=== PATIENT | female | born 1985 | race Caucasian/White ===

== ENCOUNTER → 2017-02-15 | Outpatient (CLI) | payer BC ==
[~2017-02-15] MED LIST: FRRS300 PO; MTR600X PO; PRENTAB26 PO
[2017-02-15 11:34] LABS: URINE APPEARANCE CLEAR (CLEAR); URINE BILIRUBIN NEG (NEG); URINE COLOR YELLOW; URINE NITRITE NEG (NEG); URINE PH 7.5 (4.5-7.5); URINE SPECIFIC GRAVITY 1.014 (1.000-1.030); UROBILINOGEN NEG (NEG)
[2017-02-15 11:48] LABS: MANUAL MICROSCOPIC REQUIRED? NO; REVIEW REQ? NO
== END | disposition home or self-care (01) ==
LOC: C.LABSPEC 11:03
PROVIDERS: ATTEND Obstetrics & Gynecology
DX: Z34.81 Encounter for supervision of other normal pregnancy, first trimester (principal)

== ENCOUNTER → 2017-02-19 | Outpatient (CLI) | payer BC | END | disposition home or self-care (01) | LOC: C.PAPS 07:54 | PROVIDERS: ATTEND Obstetrics & Gynecology | DX: Z01.419 Encounter for gynecological examination (general) (routine) without abnormal findings (principal); Z11.51 Encounter for screening for human papillomavirus (HPV) ==

== ENCOUNTER → 2017-02-19 | Outpatient (CLI) | payer BC ==
[2017-02-19 16:33] LABS: BASO % 0.3 %; BASO ABS # 0.03 K/uL (0-0.2); COMPLETE YES; HEMATOCRIT 39.3 % (37-47); IG% 0.2 %; LYMPH % 25.6 %; LYMPH ABS # 2.48 K/uL (1.2-3.4); MEAN CELL VOLUME 83.4 fL (80-100); MEAN CORPUSCULAR HEMOGLOBIN 28.2 pg (25-34); MEAN CORPUSCULAR HGB CONC 33.8 g/dl (32-36); MEAN PLATELET VOLUME 9.5 fL (7.4-10.4); MONO % 7.1 %; NEUT % 63.8 %; PLATELET COUNT 283 K/uL (130-400); RED BLOOD COUNT 4.71 M/uL (4.2-5.4); WHITE BLOOD COUNT 9.69 K/uL (4.8-10.8)
[2017-02-22 11:51] LABS: CHLAMYDIA TRACH RNA*** NOT DETECTED (NOT DETECTED); GC (NEIS GONORRHOEAE)RNA** NOT DETECTED (NOT DETECTED)
== END | disposition home or self-care (01) ==
LOC: C.LAB1850 15:35
PROVIDERS: ATTEND Obstetrics & Gynecology
DX: Z34.83 Encounter for supervision of other normal pregnancy, third trimester (principal)

== ENCOUNTER → 2017-04-13 | Outpatient (CLI) | payer BC ==
[2017-04-13 18:48] LABS: GTGD 50 Grams
[2017-04-15 16:37] LABS: AFP CONCENTRATION 25.3 NG/ML; AFP MULTIPLE OF MEDIAN 1.08; AFPTS GESTATIONAL AGE 15.3 WEEKS; AFPTS INSULIN DEP DIABETIC? NO; AFPTS MATERNAL WT 214 LBS; ALPHA-FETOPROTEIN RACE CAUCASIAN=W; EDD DETERMINED BY ULTRASOUND; ESTRIOL MULTIPLE OF MEDIAN 1.48; HISTORY OF NTD NO; INHIBIN A 182 PG/ML; REPEAT SAMPLE? NO
== END | disposition home or self-care (01) ==
LOC: C.LAB1850 16:25
PROVIDERS: ATTEND Obstetrics & Gynecology
DX: Z34.82 Encounter for supervision of other normal pregnancy, second trimester (principal); Z3A.00 Weeks of gestation of pregnancy not specified

== ENCOUNTER → 2017-07-15 | Outpatient (CLI) | payer OTHER ==
[2017-07-15 17:43] LABS: HEMOGLOBIN 12.6 g/dL (12.0-16.0)
== END | disposition home or self-care (01) ==
LOC: C.LAB1850 16:57
PROVIDERS: ATTEND Obstetrics & Gynecology
DX: Z34.82 Encounter for supervision of other normal pregnancy, second trimester (principal)

== ENCOUNTER → 2017-09-10 | Outpatient (CLI) | payer OTHER | END | disposition home or self-care (01) | LOC: C.LABSPEC 10:29 | PROVIDERS: ATTEND Obstetrics & Gynecology | DX: Z34.83 Encounter for supervision of other normal pregnancy, third trimester (principal) ==

== ENCOUNTER 2017-10-11 19:27 | Outpatient (CLI) | payer OTHER ==
[~2017-10-11] VITALS: Ht 157.5 cm; Wt 114.0 kg
[2017-10-11 20:20] VITALS: Ht 157.5 cm; Wt 114.0 kg
== END 2017-10-11 21:30 | disposition home or self-care (01) ==
LOC: C.LD 19:27 → C.OPB 19:27
PROVIDERS: ATTEND Obstetrics & Gynecology
DX: O34.43 Maternal care for other abnormalities of cervix, third trimester (principal); O48.0 Post-term pregnancy; Z3A.41 41 weeks gestation of pregnancy

== ENCOUNTER 2017-10-12 07:44 | Inpatient (IN) | payer OTHER ==
[~2017-10-12] VITALS: Ht 157.5 cm; Wt 115.5 kg
[~2017-10-12 07:44] MED LIST changes: -FRRS300 PO; -MTR600X PO
[2017-10-12 08:14] VITALS: Ht 157.5 cm; Wt 115.5 kg
[2017-10-12] MEDS ORDERED: LACTATED RINGER'S 1000ML 500 ML IV PRN ×2 (08:14→14:54)
[2017-10-12] MEDS ORDERED: OXYTOCIN 30 UNITS/500ML NSS IV PRN ×2 (08:15→19:00)
[2017-10-12 08:28] LABS: HEMOGLOBIN 12.6 g/dL (12.0-16.0); MEAN CELL VOLUME 86.9 fL (80-100); MEAN CORPUSCULAR HEMOGLOBIN 29.6 pg (25-34); MEAN CORPUSCULAR HGB CONC 34.1 g/dl (32-36); PLATELET COUNT 181 K/uL (130-400); RED CELL DISTRIBUTION WIDTH CV 14.3 % (11.5-14.5); RED CELL DISTRIBUTION WIDTH SD 44.7 fL (36.4-46.3); WHITE BLOOD COUNT 9.51 K/uL (4.8-10.8)
[2017-10-12] MEDS: LACTATED RINGER'S 1000ML 1,000 ML IV SCH ×2 (08:36→14:33)
[2017-10-12] MEDS: LACTATED RINGER'S 1000ML 1,000 ML IV PRN ×2 (14:13→14:27)
[2017-10-12] MEDS ORDERED: EpHEDrine SULFATE INJ 50 MG/ML AMP ONE (14:19)
[2017-10-12] MEDS ORDERED: FENTANYL CITRATE INJ 50 MCG/1 ML 2 ML VIAL ONE (14:19)
[2017-10-12] MEDS ORDERED: BUPIVACAINE 0.25% 30 ML VIAL ONE (14:19)
[2017-10-12] MEDS ORDERED: FENTANYL 2MCG/ML ROPIV 1.25MG/ML 100ML BAG EPI ONE (14:20)
[2017-10-12] MEDS ORDERED: NALOXONE HCL INJ 1 MG in SODIUM CHLORIDE 0.9% 1000ML 1,000 ML IV PRN ×4 (14:54)
[2017-10-12] MEDS ORDERED: NALOXONE HCL INJ 0.4 MG/1 ML VIAL/CARP IV PRN (15:00)
[2017-10-12] MEDS ORDERED: PROMETHAZINE HCL INJ 25 MG in SODIUM CHLORIDE 0.9% 50ML 50 ML IV PRN (15:00)
[2017-10-12] MEDS ORDERED: ONDANSETRON INJ 2 MG/ML 2 ML VIAL IV PRN (15:00)
[2017-10-12] MEDS ORDERED: DiphenhydrAMINE HCL 50 MG/ML VIAL IV PRN (15:00)
[2017-10-12] MEDS ORDERED: METOCLOPRAMIDE HCL INJ 20 MG in SODIUM CHLORIDE 0.9% 50ML 50 ML IV PRN (15:00)
[2017-10-12] MEDS ORDERED: NALBUPHINE HCL INJ 10 MG/ML AMP IV PRN (15:00)
[2017-10-12] MEDS ORDERED: EpHEDrine SULFATE INJ 50 MG/ML AMP IV PRN (15:00)
[2017-10-12] MEDS ORDERED: FENTANYL 2MCG/ML ROPIV 1.25MG/ML 100ML BAG EPI PRN (15:00)
[2017-10-12] MEDS ORDERED: SUPERCREAM 0.870 % 15GM JAR EXT PRN (19:00)
[2017-10-12] MEDS ORDERED: OXYCODONE/ACETAMINOPHEN 5-325 TAB PO PRN (19:00)
[2017-10-12] MEDS ORDERED: LANOLIN OINT EXT PRN (19:00)
[2017-10-12] MEDS ORDERED: BENZOCAINE 20% AER SPR 82.5 GM CAN EXT PRN (19:00)
[2017-10-12] MEDS ORDERED: HYDROCORTISONE ACETATE 25 MG SUPP PR PRN (19:00)
--- NOTE | 2017-10-12 19:38 | Vaginal Delivery Summary ---
Vaginal Delivery Summary VAGINAL DELIVERY SUMMARY Pre-Delivery Diagnoses: 1. 32-year-old @ 41 10/16 2. Postdates Postdelivery diagnoses: 1. Same as above 2. Shoulder dystocia Procedure: Spontaneous vaginal delivery Findings: Viable female with Apgars 7 at 1 minute and 9 at 5 minutes, normal-appearing placenta with three-vessel cord. Weight is pending - please see nursery records. Estimated blood loss: 300 cc Complications: Shoulder dystocia, please see delivery summary for details. Delivery summary: The patient presented last night for cervical ripening in preparation for today's induction of labor for postdates . She had Husain balloon inserted, which then fell out prior to her leaving labor and delivery. She was discharged home and returned this morning, where induction was started with Pitocin. Once her contraction pattern became regular, she received an epidural, and then artificial rupture of membranes was performed for clear fluid. She progressed to 9+ cervical dilation, with a small anterior lip of cervix remaining. She was feeling pressure with contractions. With 1 push, this remaining cervix was pushed behind the head. She then continued to push, and the head was at 1827. She continued to push and the head delivered at 1828 in the right occiput anterior position. Nuchal cord 2 was noted, and this was reduced without difficulty. The patient then continued to push, "turtle sign" of the face was noted, and the patient was placed in Kristopher position. The posterior arm was delivered, suprapubic pressure was applied with the following push, and the anterior shoulder then delivered. The baby was placed on mother's abdomen, a spontaneous cry was heard, the cord was doubly clamped and cut, and the baby was then handed off to the waiting nursery team. A cord segment was retained for cord gases, cord blood was obtained, and the placenta was delivered spontaneously intact with three-vessel cord. The uterus and vagina were swabbed of all clots and debris. Pitocin was started, the bladder was drained with a red-rubber catheter for 50cc clear urine, the uterus became firm, and the cervix, vagina, and perineum were inspected, a superficial perineal laceration was noted. This laceration was hemostatic and did not require repair. At the conclusion of the delivery, mother and baby are recovering in stable and good condition in the room. Sponge and instrument counts are correct 2. After delivery, I discussed the events surrounding the shoulder dystocia with patient. The baby does have some bruising on her face. Bilateral upper extremities are warm and moving and there are positive pulses, no evidence of clavicular crepitus, no clenched fist, however the left arm is not moving as much as the right. I have called the on-call account retention representative, Dr. Sesay, to notify her of the shoulder dystocia and above findings at time of delivery, and she will follow-up with nursery staff.
--- NOTE | 2017-10-12 19:48 | Anesthesia Procedure Note ---
Anesthesia Epidural Removal Nt Date & Time Oct 12, 2017 at 19:48 Vital Signs Pain Intensity: 0.0 Notes Mental Status: alert / awake / arousable, participated in evaluation Nausea / Vomiting: adequately controlled Pain: adequately controlled Airway Patency, RR, SpO2: stable & adequate BP & HR: stable & adequate Hydration State: stable & adequate Neuraxial Anesthesia: was administered Anesthetic Complications: no major complications apparent, pt satisfied with anesthetic care Epidural: removed without complications, with tip intact
[2017-10-12] MEDS: DOCUSATE SODIUM 100 MG CAP PO SCH (20:00)
[2017-10-12 21:40] VITALS: BP 115/67; PULSE 115; TEMP 37.3; O2SAT 96
[2017-10-12] MEDS: IBUPROFEN 600 MG TAB PO PRN (23:21)
[2017-10-12 23:30] VITALS: BP 122/76; PULSE 78; TEMP 36.6; O2SAT 97
[2017-10-13 03:10] VITALS: BP 107/66; PULSE 77; TEMP 36.6
[2017-10-13] MEDS: IBUPROFEN 600 MG TAB PO PRN ×4 (03:18→20:29)
--- NOTE | 2017-10-13 07:05 | Progress Note ---
Subjective Oct 13, 2017. Subjective conversation w/ patient, physical exam, chart review, lab review Ambulation: ambulating normally Voiding: no voiding problems Passing Gas: Yes Diet Tolerance: Regular Diet Lochia: Moderate Feeding Type: Breast Feeding Pain: controlled Review of Systems Constitutional: No fever, No chills Respiratory: No cough, No shortness of breath Cardiac: No chest pain Abdomen: No pain, No nausea, No vomiting Female : No dysuria Objective Vital Signs Date Time Temp Pulse Resp B/P (MAP) Pulse Ox O2 Delivery O2 Flow Rate FiO2 10/13/17 03:10 36.6 77 16 107/66 (80) Room Air 10/12/17 23:30 97 Room Air 10/12/17 23:30 36.6 78 18 122/76 (91) 97 Room Air 10/12/17 21:40 96 Room Air 10/12/17 21:40 37.3 115 20 115/67 (83) 96 Room Air Physical Exam General Appearance: WELL-APPEARING, WD/WN, NO APPARENT DISTRESS Respiratory/Chest: lungs clear, no respiratory distress Cardiovascular: regular rate, rhythm, no murmur Abdomen: normal bowel sounds, non tender, soft Fundus: Firm Extremities: non-tender, normal inspection, no pedal edema Laboratory Results Last 24 Hours Test 10/12/17 08:18 10/13/17 06:59 White Blood Count 9.51 K/uL Red Blood Count 4.26 M/uL Hemoglobin 12.6 g/dL Hematocrit 37.0 % Mean Corpuscular Volume 86.9 fL Mean Corpuscular Hemoglobin 29.6 pg Mean Corpuscular Hemoglobin Concent 34.1 g/dl RDW Standard Deviation 44.7 fL RDW Coefficient of Variation 14.3 % Platelet Count 181 K/uL Mean Platelet Volume 10.0 fL Medications Current Inpatient Medications Medications (Trade) Dose Ordered Sig/Irene Route Start Time Stop Time Status Last Admin Dose Admin Lactated Ringer's 1,000 ml @ 125 mls/hr Q8H IV 10/12/17 08:14 10/14/17 08:13 10/12/17 08:36 125 MLS/HR Oxytocin (Pitocin IV) 30 units UD PRN IV 10/12/17 19:00 11/11/17 18:59 Benzocaine (Dermoplast Aero Spr) 1 appln PRN PRN EXT 10/12/17 19:00 11/11/17 18:59 10/13/17 03:19 1 APPLN Cocaine HCl (Supercream 0.870% Cr) BID PRN EXT 10/12/17 19:00 10/26/17 18:59 Hydrocortisone Acetate (Anusol Hc Supp) 25 mg BID PRN [place] 10/12/17 19:00 11/11/17 18:59 Lanolin (Lanolin Oint) PRN PRN EXT 10/12/17 19:00 11/11/17 18:59 Ibuprofen (Motrin Tab) 600 mg Q4H PRN PO 10/12/17 19:00 11/11/17 18:59 10/13/17 03:18 600 MG Oxycodone/ Acetaminophen (Percocet 5-325mg Tab) 1 tab Q4H PRN PO 10/12/17 19:00 10/26/17 18:59 Bisacodyl (Dulcolax Tab) 5 mg 20 PO 10/13/17 20:00 10/13/17 20:01 Docusate Sodium (coLACE CAP) 100 mg BID PO 10/12/17 20:00 11/11/17 19:59 Assessment and Plan Post- Day#: 1 Continue Routine Care: 32 yo f, delivered vaginally at 41 wk with complication of shoulder dystocia. Patient is A+/GBS-/RI. Pt vitals reviewed, WNL. Hgb pending, no signs or sx of anemia (EBL 300 cc) Patient is doing well clinically Plan; 1. Continue pp care; ambulate, monitor lochia, support BF, control pain Resident Physician Supervision Note: I interviewed and examined the patient. Discussed with Dr. Chawla and agree with findings and plan as documented in the note. Any exceptions or clarifications are listed here: PPD#1 doing well. Anticipate discharge home tomorrow. Documented By: Latisha Nunes
[2017-10-13 07:16] LABS: HEMATOCRIT 33.5 % (37-47); HEMOGLOBIN 11.3 g/dL (12.0-16.0)
[2017-10-13 07:45] VITALS: BP 118/78; PULSE 88; TEMP 36.6; O2SAT 97
[2017-10-13] MEDS: DOCUSATE SODIUM 100 MG CAP PO SCH ×2 (08:06→20:29)
[2017-10-13 11:45] VITALS: BP 118/76; PULSE 80; TEMP 36.6
[2017-10-13 15:30] VITALS: BP 105/70; PULSE 79; TEMP 36.3
[2017-10-13] MEDS ORDERED: BISACODYL 5 MG TABEC PO SCH (20:00)
[2017-10-14 00:15] VITALS: BP 121/80; PULSE 68; TEMP 36.6
--- NOTE | 2017-10-14 06:11 | Discharge Instructions ---
Discharge Instructions Date of Service Oct 14, 2017. Admission Reason for Admission: Induction Discharge Discharge Diagnosis / Problem: vaginal delivery Discharge Goals Goal(s): Routine recovery after delivery Medications Continue Dispensed Medications: supercream, dermaplast, tucks, lansinoh Activity Recommendations Activity Limitations: per Instructions/Follow-up section . Instructions / Follow-Up Instructions / Follow-Up ACTIVITY RECOMMENDATIONS: * Gradual return to full activity over the next 2-3 weeks. * No lifting - nothing heavier than baby over the next 2-3 weeks. * Do not engage in vigorous exercise, sexual activity or sports until cleared by your physician. * Do not drive or operate any motorized equipment until cleared by your physician. * You may shower/bathe daily. MEDICATIONS: For discomfort or pain, you may use Acetaminophen (Tylenol), Ibuprofen (Advil), or Naproxen (Aleve) following the package directions. For constipation you may use Colace following the package directions. BREAST CARE: If you are not breast feeding: * Wear a supportive bra 24 hours a day for one to two weeks. * Avoid stimulating your breasts and nipples as much as possible during the first few weeks after delivery. * When taking a shower, have the warm water hit your back, not breasts. * When your breasts feel full, apply ice packs. Usually three to four times a day helps ease the discomfort. * Take a mild pain medication (Tylenol / Motrin) when you are uncomfortable. If breast feeding: * Use breast milk to lubricate nipples. Lansinoh cream may be used for sore nipples. You do not need to remove cream prior to breast feeding. If using a different brand of cream, check the label for directions regarding removal of cream prior to nursing. * Wear a supportive bra. * If having problems with breasts or breast feeding, call a project management consultant or your health care provider. EPISIOTOMY CARE: After delivery, if you have an episiotomy (stitches), the following steps will ease discomfort and aid healing. * For the first 24 hours after delivery, place ice packs next to your episiotomy to help reduce swelling. * After the first 24 hour-period, sitz baths, either portable or in the tub, are suggested. A shower with a shower arm sprayed over the episiotomy may be comforting. * Patricia care should be done after each voiding and bowel movement. Squirt warm water from a plastic bottle over the perineum (region of the body between the anus and urinary opening) and pat dry. * Use Dermoplast to ease discomfort. Shake container. [place] directly over the episiotomy. Place a Tucks on a clean sanitary pad next to your episiotomy. SPECIAL CARE INSTRUCTIONS: When you are discharged from the hospital, it is important for you to follow the instructions listed below: * During the first week at home, you should be able to care for yourself and your baby. In addition, the usual light household activities are encouraged. * Limit your activities to the way you feel. Do not try to clean the house or move furniture. Be sensible. * If you actively engage in sports and have done so up until the time of your delivery, you may resume these activities as soon as you feel able. This may take up to one month or even longer. Use good judgment. * Continue to take your vitamins for at least six weeks after the of your baby. * Your diet need not be limited unless you were on a special diet before your delivery. Breast-feeding mothers need around 2500 calories per day and at least 64-80 ounces of fluid per day (8 to 10 glasses). * You should eat foods from the four major food groups. Crash diets or fad diets are to be avoided. Eating lean meats, fresh fruits and vegetables, low-fat dairy products, high fiber foods and a regular exercise program, will help you get back to your pre- weight without putting your health at risk. * Constipation is sometimes a problem after delivery. Take a mild laxative as needed. If breast feeding, Milk of Magnesia is acceptable to use. You may use a suppository or Fleets enema if no episiotomy. * A daily shower or tub bath is suggested. Be sure to thoroughly and gently dry the perineum. * A bloody vaginal discharge will usually continue until around four weeks post . A small amount of bleeding may continue for as long as six weeks. Vaginal discharge changes from the bright red bleeding after delivery to pink then brownish and finally yellowish-pink before becoming white and disappearing. * Bleeding may increase with activity. Your first period may come in 4-8 weeks. If you are breast feeding, your period may be delayed even longer. * [place] (sex) can begin whenever both you and your partner feel comfortable and do not have any form of genital infection. It is recommended that you wait at least six weeks for internal and external healing to occur. If you have questions, please talk to your health care practitioner. A condom should be used to prevent infection and . * Foreplay, gentle intercourse and lubrication is very important the first several times to prevent pain. A water-based lubricant such as K-Y jelly or Astroglide may be used. * If you have RH negative blood and your baby is RH positive, you will receive RHOGAM by injection prior to discharge. The nurse will give you a card to keep with you that has the date and place that you received RHOGAM after delivery. * During your care, you had a Rubella screen done to check for the presence of rubella antibodies in your blood. If your test was negative, you will receive a Rubella vaccine prior to discharge. This vaccine may cause a fever, soreness at the injection site and flu-like symptoms. If these symptoms persist, notify your health care practitioner. is not advised for one month after a Rubella vaccine. * Verbalizes understanding of car seat law as reviewed with patient nursing. * Car Seat hand-out given and reviewed with patient by nursing. * Shaken baby information reviewed with patient by nursing. Call you doctor if: * Heavy bleeding (saturating several pads an hour) or passing clots the size of your fist. * A fever >101 degrees F (38.3 degrees C) on two occasions four hours apart and /or chills. * Unusual pain in the pelvic or vaginal areas. * "Baby Blues" lasting longer than two weeks. If you have any questions or concerns, call your health care practitioner at . FOLLOW UP VISIT: * Please call the office at to schedule a 6 week examination. It is important you keep this appointment. It is important for you to make arrangements for either yearly or twice yearly check-ups thereafter. Current Hospital Diet Patient's current hospital diet: Regular OB Diet Discharge Diet Recommended Diet: Regular Diet, Regular OB Diet Pending Studies Studies pending at discharge: no Medical Emergencies . Who to Call and When: Medical Emergencies: If at any time you feel your situation is an emergency, please call [phone] immediately. . Non-Emergent Contact Non-Emergency issues call your: Primary Care Provider, Road Gang Supervisor . . "Provider Documentation" section prepared by Dae Chawla. .
--- NOTE | 2017-10-14 06:45 | Progress Note ---
Subjective Oct 14, 2017. Subjective conversation w/ patient, physical exam, chart review, lab review Ambulation: ambulating normally Voiding: no voiding problems Passing Gas: Yes Diet Tolerance: Regular Diet Lochia: Moderate Feeding Type: Breast Feeding Review of Systems Constitutional: No fever, No chills Respiratory: No cough, No sputum, No shortness of breath Cardiac: No chest pain Abdomen: No pain, No nausea, No vomiting Female : No dysuria Objective Vital Signs Date Time Temp Pulse Resp B/P (MAP) Pulse Ox O2 Delivery O2 Flow Rate FiO2 10/14/17 00:15 Room Air 10/14/17 00:15 36.6 68 18 121/80 (94) Room Air 10/13/17 15:30 Room Air 10/13/17 15:30 36.3 79 20 105/70 (82) Room Air 10/13/17 11:45 36.6 80 18 118/76 (90) Room Air 10/13/17 07:45 36.6 88 20 118/78 (91) 97 Room Air 10/13/17 07:45 97 Room Air Physical Exam General Appearance: WELL-APPEARING, WD/WN, NO APPARENT DISTRESS Respiratory/Chest: lungs clear, no respiratory distress Cardiovascular: regular rate, rhythm, no murmur Abdomen: normal bowel sounds, non tender Fundus: Firm, Relation to Umbilicus (1 cm above u) Extremities: non-tender, normal inspection, no pedal edema Laboratory Results Last 24 Hours Test 10/13/17 06:59 Hemoglobin 11.3 g/dL Hematocrit 33.5 % Medications Current Inpatient Medications Medications (Trade) Dose Ordered Sig/[facility] Route Start Time Stop Time Status Last Admin Dose Admin Lactated Ringer's 1,000 ml @ 125 mls/hr Q8H IV 10/12/17 08:14 10/14/17 08:13 10/12/17 08:36 125 MLS/HR Oxytocin (Pitocin IV) 30 units UD PRN IV 10/12/17 19:00 11/11/17 18:59 Benzocaine (Dermoplast Aero Spr) 1 appln PRN PRN EXT 10/12/17 19:00 11/11/17 18:59 10/13/17 03:19 1 APPLN Cocaine HCl (Supercream 0.870% Cr) BID PRN EXT 10/12/17 19:00 10/26/17 18:59 Hydrocortisone Acetate (Anusol Hc Supp) 25 mg BID PRN [place] 10/12/17 19:00 11/11/17 18:59 Lanolin (Lanolin Oint) PRN PRN EXT 10/12/17 19:00 11/11/17 18:59 Ibuprofen (Motrin Tab) 600 mg Q4H PRN PO 10/12/17 19:00 11/11/17 18:59 10/13/17 20:29 600 MG Oxycodone/ Acetaminophen (Percocet 5-325mg Tab) 1 tab Q4H PRN PO 10/12/17 19:00 10/26/17 18:59 Docusate Sodium (coLACE CAP) 100 mg BID PO 10/12/17 20:00 11/11/17 19:59 10/13/17 20:29 100 MG Assessment and Plan Post- Day#: 2 Continue Routine Care: 32 yo f, delivered vaginally at 41 wk with complication of shoulder dystocia. Patient is A+/GBS-/RI. Pt vitals reviewed, WNL. Hgb pending, no signs or sx of anemia (EBL 300 cc) Patient is doing well clinically Plan; 1. Continue pp care; ambulate, monitor lochia, support BF, control pain 2. Discussed dc planning. Resident Physician Supervision Note: I interviewed and examined the patient. Discussed with Dr. Dr. Chawla and agree with findings and plan as documented in the note. Any exceptions or clarifications are listed here: Doing well. PLan d/c. Instructions given. Documented By: Estefany Hinojosa
[2017-10-14 07:45] VITALS: BP 117/76; PULSE 80; TEMP 36.6; O2SAT 96
[2017-10-14] MEDS: DOCUSATE SODIUM 100 MG CAP PO SCH (08:12)
[2017-10-14] MEDS: IBUPROFEN 600 MG TAB PO PRN (08:13)
[2017-10-14 13:20] VITALS: BP_DIAS 76; PULSE 80; TEMP 36.6
== END 2017-10-14 13:25 | disposition home or self-care (01) | DRG 775 ==
LOC: EDSTATUS 07:44 → C.LD 07:45 → C.OBG 21:20
PROVIDERS: ADMIT Obstetrics & Gynecology; ATTEND Obstetrics & Gynecology
PROC: 0U7C7ZZ Dilation of Cervix, Via Natural or Artificial Opening (ICD-10-PCS; principal; 2017-10-12)
PROC: 3E033VJ Introduction of Other Hormone into Peripheral Vein, Percutaneous Approach (ICD-10-PCS; principal; 2017-10-12)
PROC: 10E0XZZ Delivery of Products of Conception, External Approach (ICD-10-PCS; principal; 2017-10-12)
DX: O48.0 Post-term pregnancy (principal); O66.0 Obstructed labor due to shoulder dystocia; O70.0 First degree perineal laceration during delivery; O69.1XX1 Labor and delivery complicated by cord around neck, with compression, fetus 1; Z37.0 Single live birth; Z3A.41 41 weeks gestation of pregnancy